=== PATIENT | female | born 1965 | race African-American/Black ===

== ENCOUNTER 2016-05-27 21:44 | Emergency (ER) | payer OTHER ==
[2016-05-27 21:53] VITALS: BP 146/79; PULSE 91; TEMP 97.7; BMI 36.6
--- NOTE | 2016-05-27 22:22 | PDOC ---
[id number] No Limitations - History of Present Illness Initial Comments: 05/27/16 22:59 The patient is a 50 year old female, with a significant past medical history of diabetes(on metformin) and hypertension, who presents to the emergency department complaining of chest pain that began approximately 1-2 hours ago. The patient states she went shopping after dinner when she began to experienced chest pain localized to the left side of her chest, radiating into her back and left arm. The patient reports a pressure on the left side of her chest and into her back secondary to taking deep breaths. The patient states she has not experienced anything like this in the past. The patient denies any associated diaphoresis, shortness of breath, palpitations, lower extremity edema, or leg pain. The patient reports a cough, but denies fever, chills, headache, dizziness , or LOC. The patient denies nausea, vomiting, diarrhea, constipation, or changes in urination patterns. Allergies: None reported. Past Surgical History: None reported. Social History: Non-smoker. Denies alcohol or drug use. Family History: Dad: Cardiac disease <Francisca Maher - Last Filed: 05/27/16 22:59> <Adri Knight - Last Filed: 05/28/16 07:03> - General Chief Complaint: Chest Pain Stated Complaint: CHEST PAIN/LT ARM NUMB Time Seen by Provider: 05/27/16 22:10 Past History <Francisca Maher - Last Filed: 05/27/16 22:59> - Past Medical History Diabetes: Yes HTN: Yes - Immunization History Immunization Up to Date: No - Psycho/Social/Smoking Cessation Hx Anxiety: No Suicidal Ideation: No Smoking History: Never smoked Have you smoked in the past 12 months: No Information on smoking cessation initiated: No Hx Alcohol Use: Yes (Occasional) Drug/Substance Use Hx: No Substance Use Type: Alcohol <Adri Knight - Last Filed: 05/28/16 07:03> - Past Medical History Allergies/Adverse Reactions: Allergies Allergy/AdvReac Type Severity Reaction Status Date / Time No Known Allergies Allergy Verified 05/27/16 21:53 Home Medications: Ambulatory Orders Metformin HCl [Glucophage -] 500 mg PO DAILY 05/27/16 Valsartan [Diovan] 20 mg PO DAILY 05/27/16 Review of Systems - Review of Systems Able to Perform ROS?: Yes Comments:: 05/27/16 22:59 GENERAL/CONSTITUTIONAL: No fever or chills. No weakness. HEAD, EYES, EARS, NOSE AND THROAT: No change in vision. No ear pain or discharge. No sore throat. CARDIOVASCULAR: +Chest pain. No shortness of breath. RESPIRATORY: +Cough. No wheezing or hemoptysis. GASTROINTESTINAL: No nausea, vomiting, diarrhea or constipation. GENITOURINARY: No dysuria, frequency, or change in urination. MUSCULOSKELETAL: +Back and left arm pain. No joint or muscle swelling or pain. No neck pain. SKIN: No rash NEUROLOGIC: No headache, vertigo, loss of consciousness, or change in strength/ sensation. ENDOCRINE: No increased thirst. No abnormal weight change. HEMATOLOGIC/LYMPHATIC: No anemia, easy bleeding, or history of blood clots. ALLERGIC/IMMUNOLOGIC: No hives or skin allergy. <Francisca Maher - Last Filed: 05/27/16 22:59> *Physical Exam - Vital Signs Last Vital Signs Temp Pulse Resp BP Pulse Ox 97.7 F 91 H 20 146/79 98 05/27/16 21:46 05/27/16 21:46 05/27/16 21:46 05/27/16 21:46 05/27/16 21:46 - Physical Exam Comments: 05/27/16 23:00 GENERAL: Awake, alert, and fully oriented, in no acute distress HEAD: No signs of trauma EYES: PERRLA, EOMI, sclera anicteric, conjunctiva clear ENT: Auricles normal inspection, hearing grossly normal, nares patent, oropharynx clear without exudates. Moist mucosa NECK: Normal ROM, supple, no lymphadenopathy, JVD, or masses LUNGS: Breath sounds equal, clear to auscultation bilaterally. No wheezes, and no crackles HEART: Regular rate and rhythm, normal S1 and S2, no murmurs, rubs or gallops ABDOMEN: Soft, nontender, normoactive bowel sounds. No guarding, no rebound. No masses EXTREMITIES: Normal range of motion, no edema. No clubbing or cyanosis. No cords, erythema, or tenderness NEUROLOGICAL: Cranial nerves II through XII grossly intact. Normal speech, normal gait SKIN: Warm, Dry, normal turgor, no rashes or lesions noted. <Francisca Maher - Last Filed: 05/27/16 22:59> - Vital Signs Last Vital Signs Temp Pulse Resp BP Pulse Ox 97.7 F 91 H 20 146/79 98 05/27/16 21:46 05/27/16 21:46 05/27/16 21:46 05/27/16 21:46 05/27/16 21:46 <Adri Knight - Last Filed: 05/28/16 07:03> Heart Score/ECG Review - ECG Impressions Comment:: 05/27/16 22:45 Vent. Rate: 88 bpm IMPRESSION: Normal sinus rhythm. <Frnacisca Maher - Last Filed: 05/27/16 22:59> ED Treatment Course - LABORATORY CBC & Chemistry Diagram: 05/27/16 23:00 05/27/16 23:00 <Adri Knight - Last Filed: 05/28/16 07:03> Medical Decision Making - Medical Decision Making 05/28/16 00:08 Pt comes with CP that began after dinner and less than 2 hours prior to arrival. Pt is diabetic and hypertensive. She went to dinner with her parents , and then she went home early and left her parents. She went shopping before going home. It is extremely cold today, and it is possible that pt had angina due to eating, cold temps, and exertion in the cold weather. Pt feels better at this time. She doesn't take aspirin daily. Pt has a normal exam. Her labs are normal. She has a normal CXR and she will have a second cardiac enzyme and repeat EKG in 6 hours. 05/28/16 07:01 EKG#1 on arrival is NSR; EKG #2 is NSR, unchanged from EKG#1 Both sets of cardiac enzymes are normal CXR normal. All labs normal. Pt is stable for discharge home. <Adri Knight - Last Filed: 05/28/16 07:03> *DC/Admit/Observation/Transfer - Attestations Scribe Attestion: 05/27/16 23:00 Documentation prepared by Francisca Maher, acting as medical bill processor for Adri Knight MD. <Francisca Maher - Last Filed: 05/27/16 22:59> <Adri Knight - Last Filed: 05/28/16 07:03> Diagnosis at time of Disposition: Atypical chest pain - Discharge Dispostion Disposition: HOME Condition at time of disposition: Stable - Referrals Referrals: Jose E Moreno [Primary Care Provider] - Jason Hoskins MD [Staff Physician] - - Patient Instructions Printed Discharge Instructions: DI for Atypical Chest Pain
[2016-05-27 23:57] LABS: URINE APPEARANCE SLCLOUDY; URINE BILIRUBIN NEGATIVE (NEGATIVE); URINE BLOOD 3+ (NEGATIVE); URINE COLOR LTYELLOW; URINE GLUCOSE (UA) NEGATIVE (NEGATIVE); URINE KETONE NEGATIVE (NEGATIVE); URINE LEUK ESTERASE TRACE (NEGATIVE); URINE NITRITE NEGATIVE (NEGATIVE); URINE PROTEIN NEGATIVE (NEGATIVE); URINE UROBILINOGEN NEGATIVE E.U./dl (0.2-1.0)
[2016-05-27 23:59] LABS: ALBUMIN 3.6 g/dl (3.4-5.0); ANION GAP 10 (8-16); BASOPHIL 0.6 % (0-2.0); BILIRUBIN,TOTAL 0.2 mg/dL (0.2-1.0); CALCIUM 8.8 mg/dL (8.5-10.1); CO2 29 mmol/L (21-32); CREATININE 0.8 mg/dL (0.55-1.02); EOSINOPHIL 3.6 % (0-4.5); GLUCOSE,RANDOM 105 mg/dL (74-106); MCHC 32.9 g/dl (32.0-36.0); MEAN CELL VOLUME 85.3 fl (80-96); MEAN PLT VOLUME 9.4 fl (7.5-11.1); NEUTROPHILS 66.8 % (42.8-82.8); PLATELET COUNT 292 K/MM3 (134-434); RDW 13.9 % (11.6-15.6); SGOT/AST 14 U/L (15-37); SGPT/ALT 18 U/L (12-78); TOT PROT 7.4 g/dl (6.4-8.2); WHITE BLOOD COUNT 10.5 K/mm3 (4.0-10.0)
[2016-05-28] LABS: URINE MUCUS RARE; URINE RBC 37 /hpf (0-3); URINE WBC 4 /hpf (3-5)
[2016-05-28 00:01] LABS: ALK PHOS 92 U/L (45-117); TROPONIN I 0.03 ng/ml (0.00-0.05)
[2016-05-28 00:10] LABS: INR 0.98 (0.82-1.09); PROTHROMBIN TIME (PATIENT) 10.8 SEC (9.98-11.88)
[2016-05-28 05:00] LABS: TROPONIN I 0.03 ng/ml (0.00-0.05)
--- NOTE | 2016-05-28 17:41 | EKG ---
Test Reason : Blood Pressure : / mmHG Vent. Rate : 069 BPM Atrial Rate : 069 BPM P-R Int : 178 ms QRS Dur : 080 ms QT Int : 418 ms P-R-T Axes : 047 023 027 degrees QTc Int : 447 ms NORMAL SINUS RHYTHM NORMAL ECG NO PREVIOUS ECGS AVAILABLE Confirmed by AMISH RUELAS MD ([id number]) on 05/28/2016 5:40:41 PM Referred By: Confirmed By:AMISH RUELAS MD
--- NOTE | 2016-05-30 13:38 | EKG ---
Test Reason : Blood Pressure : / mmHG Vent. Rate : 088 BPM Atrial Rate : 088 BPM P-R Int : 150 ms QRS Dur : 080 ms QT Int : 374 ms P-R-T Axes : 057 012 046 degrees QTc Int : 452 ms NORMAL SINUS RHYTHM POSSIBLE LEFT ATRIAL ENLARGEMENT BORDERLINE ECG NO PREVIOUS ECGS AVAILABLE Confirmed by JESSENIA MESA, AMISH ([id number]) on 05/30/2016 1:37:45 PM Referred By: Confirmed By:AMISH RUELAS MD
== END 2016-05-28 05:44 | disposition home or self-care (01) ==
LOC: SUPCPDRO 21:44 → JER 21:44
DX: R07.89 Other chest pain (principal); I10 Essential (primary) hypertension; E11.9 Type 2 diabetes mellitus without complications; Z79.84 Long term (current) use of oral hypoglycemic drugs
CPT/HCPCS: 36415; 71020-TC; 80053; 81003; 81015; 82550; 84484; 84703; 85025; 85610; 93005; 93010; 99281-25